=== PATIENT | female | born 1955 | race Caucasian/White ===

== ENCOUNTER → 2016-10-03 | Outpatient (CLI) | payer BC | END | disposition home or self-care (01) | LOC: RAD.S 16:00 | DX: I80.01 Phlebitis and thrombophlebitis of superficial vessels of right lower extremity (principal) ==

== ENCOUNTER → 2016-12-04 | Outpatient (CLI) | payer BC | END | disposition home or self-care (01) | LOC: RAD.S 15:00 | DX: I83.90 Asymptomatic varicose veins of unspecified lower extremity (principal); I80.9 Phlebitis and thrombophlebitis of unspecified site; I73.9 Peripheral vascular disease, unspecified; Z98.890 Other specified postprocedural states ==